=== PATIENT | female | born 1980 | race Caucasian/White ===

== ENCOUNTER 2018-01-25 10:52 | Emergency (ER) | payer BC ==
[2018-01-25] MEDS ORDERED: Aspirin 81 MG Tab.Chew PO ONE (11:10)
--- NOTE | 2018-01-25 11:17 | EDM.PDOC ---
ED HPI GENERAL MEDICAL PROBLEM - General Chief Complaint: Cardiovascular Problem Stated Complaint: BACK PAIN, HEART PALPITATIONS, ARM PAIN Time Seen by Provider: 01/25/18 11:04 Source of Information: Reports: Patient History Limitations: Reports: No Limitations - History of Present Illness INITIAL COMMENTS - FREE TEXT/NARRATIVE: This 37 yo female patient reports to the ED with lower back pain, chest pain and right arm pain that started at about 1045 today. The patient reports she was cleaning when the symptoms started. The patient reports that she had some abdominal pain this morning and took some Rolaids for that which improved her symptoms. 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 The patient does see cardiology with the last visit about 1 month ago. The patient reports there is a possibility of . The patient has had a miscarriage in the past. 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(s) (Rolaids) Back Pain Score (Numeric/FACES): 7 - Related Data Allergies Allergy/AdvReac Type Severity Reaction Status Date / Time oxycodone Allergy Intermediate Nausea Verified 01/25/18 10:59 Sulfa (Sulfonamide Allergy Shortness Verified 01/25/18 10:59 Antibiotics) of Breath venom-wasp [wasp venom] Allergy Airway Verified 01/25/18 10:59 Tightness Home Meds: Home Meds Enalapril [Vasotec] 10 mg PO DAILY 04/26/16 [History] L.acidoph,Paracasei, B.lactis [Probiotic] 1 cap ORAL.INH DAILY 04/26/16 [History ] Past Medical History HEENT History: Reports: None Cardiovascular History: Reports: Other (See Below) Other Cardiovascular History: heart defect as an , 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 this is 2nd Musculoskeletal History: Reports: None Neurological History: Reports: None Psychiatric History: Reports: None Endocrine/Metabolic History: Reports: None Hematologic History: Reports: None Immunologic History: Reports: None Oncologic (Cancer) History: Reports: None Dermatologic History: Reports: None - Infectious Disease History Infectious Disease History: Reports: Chicken Pox - Past Surgical History Head Surgeries/Procedures: Reports: None GI Surgical History: Reports: Cholecystectomy Social & Family History - Family History Family Medical History: Noncontributory - Tobacco Use Smoking Status *Q: Current Every Day Smoker Years of Tobacco use: 7 Packs/Tins Daily: 1 - Caffeine Use Caffeine Use: Reports: Soda - Recreational Drug Use Recreational Drug Use: No - Living Situation & Occupation Living situation: Reports: ED ROS GENERAL - Review of Systems Review Of Systems: ROS reveals no pertinent complaints other than HPI. ED EXAM, GENERAL - Physical Exam Exam: See Below Exam Limited By: No Limitations General Appearance: Alert, WD/WN, Moderate Distress Eye Exam: Bilateral Eye: EOMI, Normal Inspection, PERRL Ears: Normal External Exam, Normal Canal, Hearing Grossly Normal, Normal TMs Nose: Normal Inspection, Normal Mucosa, No Blood Throat/Mouth: Normal Inspection, Normal Lips, Normal Teeth, Normal Gums, Normal Oropharynx, Normal Voice, No Airway Compromise Head: Atraumatic, Normocephalic Neck: Normal Inspection, Supple, Non-Tender, Full Range of Motion Cardiovascular: Normal Peripheral Pulses, Regular Rate, Rhythm, No Edema, No Gallop, No JVD, No Murmur, No Rub GI/Abdominal: Normal Bowel Sounds, Soft, Non-Tender, No Organomegaly, No Distention, No Abnormal Bruit, No Mass (Female) Exam: Deferred Rectal (Female) Exam: Deferred Back Exam: Paraspinal Tenderness (lower back), Vertebral Tenderness (lower back ) Extremities: Normal Inspection, Normal Range of Motion, Non-Tender, Normal Capillary Refill, No Pedal Edema Neurological: Alert, Oriented, CN II-XII Intact, Normal Cognition, Normal Gait, Normal Reflexes, No Motor/Sensory Deficits Psychiatric: Normal Affect, Normal Mood Skin Exam: Warm, Dry, Intact, Normal Color, No Rash Lymphatic: No Adenopathy Course - Vital Signs Last Recorded V/S: Last Vital Signs Temp 36.9 C 01/25/18 14:19 Pulse 87 01/25/18 14:19 Resp 15 01/25/18 14:19 BP 114/60 01/25/18 14:19 Pulse Ox 94 L 01/25/18 14:19 - Orders/Labs/Meds Orders: Active Orders 24 hr Category Date Time Status EKG Documentation Completion [RC] URGENT Care 01/25/18 11:09 Active Chest wo Cont [CT] Urgent Exams 01/25/18 15:01 Ordered CULTURE BLOOD [BC] Stat Lab 01/25/18 14:43 Ordered CULTURE BLOOD [BC] Stat Lab 01/25/18 14:43 Ordered HCG QUALITATIVE,URINE [URCHEM] Stat Lab 01/25/18 11:30 Ordered LACTIC ACID [CHEM] Stat Lab 01/25/18 14:43 Ordered UA W/MICROSCOPIC [URIN] Stat Lab 01/25/18 11:30 Ordered Blood Culture x2 Reflex Set [OM.PC] Stat Oth 01/25/18 14:43 Ordered Labs: Laboratory Tests 01/25/18 01/25/18 01/25/18 Range/Units 11:20 11:20 11:20 WBC 21.6 H (5.0-10.0) 10^3/uL RBC 4.96 (4.2-5.4) 10^6/uL Hgb 15.4 D (12.0-16.0) g/dL Hct 45.3 (37.0-47.0) % MCV 91.3 (80-100) fL MCH 31.0 (27.0-34.0) pg MCHC 34.0 (33.0-35.0) g/dL Plt Count 192 (150-450) 10^3/uL Neut % (Auto) 86.2 H (42.2-75.2) % Lymph % (Auto) 9.5 L (20.5-50.1) % Sullivan % (Auto) 3.6 (2-8) % Eos % (Auto) 0.5 L (1.0-3.0) % Baso % (Auto) 0.2 (0.0-1.0) % Sodium 133 L (135-145) mmol/L Potassium 3.9 (3.6-5.0) mmol/L Chloride 104 (101-111) mmol/L Carbon Dioxide 19.0 L (21.0-31.0) mmol/L Anion Gap 13.9 BUN 10 (7-18) mg/dL Creatinine 0.7 (0.6-1.3) mg/dL Est Cr Clr Drug Dosing 87.03 mL/min Estimated GFR (MDRD) > 60 BUN/Creatinine Ratio 14.28 Glucose 103 (74-105) mg/dL Calcium 9.1 (8.4-10.2) mg/dl Total Bilirubin 1.0 (0.2-1.0) mg/dL AST 25 (10-42) IU/L ALT 22 (10-60) IU/L Alkaline Phosphatase 84 (42-121) IU/L Troponin I < 0.02 (0.00-0.02) ng/ml B-Natriuretic Peptide 24 (0-100) pg/ml Total Protein 7.6 (6.7-8.2) g/dl Albumin 4.0 (3.2-5.5) g/dl Globulin 3.6 Albumin/Globulin Ratio 1.11 Amylase 78 (28-100) U/L Lipase 28 (22-51) U/L Urine Color (YELLOW) Urine Appearance (CLEAR) Urine pH (5.0-9.0) Ur Specific [place] (1.005-1.030) Urine Protein (NEGATIVE) Urine Glucose (UA) (NEGATIVE) Urine Ketones (NEGATIVE) Urine Occult Blood (NEGATIVE) Urine Nitrite (NEGATIVE) Urine Bilirubin (NEGATIVE) Urine Urobilinogen (0.2-1.0) mg/dL Ur Leukocyte Esterase (NEGATIVE) Urine RBC /HPF Urine WBC (0-5/HPF) /HPF Ur Epithelial Cells /HPF Urine Bacteria (0-FEW/HPF) /HPF Urine HCG, Qual 01/25/18 01/25/18 Range/Units 11:30 11:30 WBC (5.0-10.0) 10^3/uL RBC (4.2-5.4) 10^6/uL Hgb (12.0-16.0) g/dL Hct (37.0-47.0) % MCV (80-100) fL MCH (27.0-34.0) pg MCHC (33.0-35.0) g/dL Plt Count (150-450) 10^3/uL Neut % (Auto) (42.2-75.2) % Lymph % (Auto) (20.5-50.1) % Sullivan % (Auto) (2-8) % Eos % (Auto) (1.0-3.0) % Baso % (Auto) (0.0-1.0) % Sodium (135-145) mmol/L Potassium (3.6-5.0) mmol/L Chloride (101-111) mmol/L Carbon Dioxide (21.0-31.0) mmol/L Anion Gap BUN (7-18) mg/dL Creatinine (0.6-1.3) mg/dL Est Cr Clr Drug Dosing mL/min Estimated GFR (MDRD) BUN/Creatinine Ratio Glucose (74-105) mg/dL Calcium (8.4-10.2) mg/dl Total Bilirubin (0.2-1.0) mg/dL AST (10-42) IU/L ALT (10-60) IU/L Alkaline Phosphatase (42-121) IU/L Troponin I (0.00-0.02) ng/ml B-Natriuretic Peptide (0-100) pg/ml Total Protein (6.7-8.2) g/dl Albumin (3.2-5.5) g/dl Globulin Albumin/Globulin Ratio Amylase (28-100) U/L Lipase (22-51) U/L Urine Color Yellow (YELLOW) Urine Appearance Clear (CLEAR) Urine pH 6.0 (5.0-9.0) Ur Specific [place] 1.015 (1.005-1.030) Urine Protein Negative (NEGATIVE) Urine Glucose (UA) Negative (NEGATIVE) Urine Ketones Negative (NEGATIVE) Urine Occult Blood Negative (NEGATIVE) Urine Nitrite Negative (NEGATIVE) Urine Bilirubin Negative (NEGATIVE) Urine Urobilinogen 0.2 (0.2-1.0) mg/dL Ur Leukocyte Esterase Negative (NEGATIVE) Urine RBC 0-5 /HPF Urine WBC 0-5 (0-5/HPF) /HPF Ur Epithelial Cells Few /HPF Urine Bacteria Few (0-FEW/HPF) /HPF Urine HCG, Qual Negative Meds: Medications Discontinued Medications Generic Name Dose Route Start Last Admin Trade Name Freq PRN Reason Stop Dose Admin Aspirin 324 mg 01/25/18 11:10 01/25/18 11:30 Aspirin PO 01/25/18 11:11 324 mg ONETIME ONE Administration Ceftriaxone Sodium 1 gm 01/25/18 15:01 Rocephin IVPUSH 01/25/18 15:02 ONETIME ONE Iopamidol 75 ml 01/25/18 12:11 01/25/18 12:32 Isovue-300 (61%) IVPUSH 01/25/18 12:12 75 ml ONETIME ONE Administration Lorazepam 0.5 mg 01/25/18 14:44 01/25/18 14:48 Ativan IVPUSH 01/25/18 14:45 0.5 mg ONETIME ONE Administration - Re-Assessments/Exams Free Text/Narrative Re-Assessment/Exam: 01/25/18 14:09 Chest x-ray and abdominal CT demonstrates an enlarged liver and chest congestion. A BNP was ordered based on that report. Departure - Departure Time of Disposition: 15:05 Disposition: DC/Tfer to [facility] 02 Reason for Transfer *Q: Other Condition: Fair Clinical Impression: Chest pain Qualifiers: Chest pain type: unspecified Qualified Code(s): R07.9 - Chest pain, unspecified Leukocytosis Qualifiers: Leukocytosis type: bandemia Qualified Code(s): D72.825 - Bandemia Forms: Interfacility Transfer EMTALA Care Plan Goals: Discussed the examination, history, lab, x-ray and CT results with Dr. Chau ([facility]). Dr. Chau accepted the patient for continued evaluation and management. The patient will be transported by [facility]. - My Orders Last 24 Hours: My Active Orders 01/25/18 11:09 EKG Documentation Completion [RC] URGENT 01/25/18 11:30 HCG QUALITATIVE,URINE [URCHEM] Stat UA W/MICROSCOPIC [URIN] Stat 01/25/18 14:43 CULTURE BLOOD [BC] Stat CULTURE BLOOD [BC] Stat LACTIC ACID [CHEM] Stat Blood Culture x2 Reflex Set [OM.PC] Stat 01/25/18 15:01 Chest wo Cont [CT] Urgent - Assessment/Plan Last 24 Hours: My Active Orders 01/25/18 11:09 EKG Documentation Completion [RC] URGENT 01/25/18 11:30 HCG QUALITATIVE,URINE [URCHEM] Stat UA W/MICROSCOPIC [URIN] Stat 01/25/18 14:43 CULTURE BLOOD [BC] Stat CULTURE BLOOD [BC] Stat LACTIC ACID [CHEM] Stat Blood Culture x2 Reflex Set [OM.PC] Stat 01/25/18 15:01 Chest wo Cont [CT] Urgent
[2018-01-25 11:54] LABS: ANION GAP 13.9; CHLORIDE,CL 104 mmol/L (101-111); SODIUM,NA 133 mmol/L (135-145)
[2018-01-25] MEDS ORDERED: Iopamidol 612 MG/ML 75 ML Bottle IVPUSH ONE (12:11)
--- NOTE | 2018-01-25 12:53 | CR ---
Clinical history: 37-year-old female smoker with chest pain. Interpretation: Relative increased heart size and generalized increased (florid) venous congestion an d cephalization of flow when compared to 10 April 2008 exam. Trace of fluid in the fissures but no alveolar edema or dependent pleural effusion. Cardiac murmur? EKG? Enzymes? Myocardial infarction? No lung mass, hilar lymphadenopathy or focal lobar pneumonia. No atelectasis/collapse.. No pneumothorax. CONCLUSION: Mild cardiomegaly and generalized venous congestion.
--- NOTE | 2018-01-25 13:44 | CT ---
CLINICAL HISTORY: 37-year-old 139 pound female smoker with heart disease, chest/abdominal pain, and W BC 21,000. CHF. SCAN TECHNIQUE: Volume acquisition of data from the abdomen and pelvis obtained without oral contrast but during the intravenous administration 75 cc nonionic Isovue contrast while the patient was lying supine on the Siemens multislice scanner [place], [place]. All data a rchived in the PACS system for storage, reformatting axial/sagittal/coronal planes and study. INTERPRETATION: 1. Normal appendix RLQ. 2. Cholecystectomy. Large homogeneously dense liver without abnormal duct dilatation. Normal spleen a nd pancreas. Adrenal glands unremarkable. No abdominal or pelvic mass lesion. No mesenteric or retrop eritoneal lymphadenopathy. 3. Normal reniform size, axis and configuration. No cortical mass lesion, nephrolithiasis or signs ob structive uropathy. 4. Large heart. Venous congestion. No pericardial effusion or dependent pleural effusion. 5. No sign of mechanical large or small bowel obstruction. No ascites or free intraperitoneal air. 6. Midline uterus unremarkable. Normal caliber aortoiliac vessels. Exaggerated lumbar lordosis. CONCLUSION: Cardiomegaly and venous congestion. Hepatomegaly. No sign of appendicitis, pyelonephritis or abnormal intraperitoneal inflammation. Cholecystectomy.
[2018-01-25] MEDS ORDERED: LORazepam 2 MG/ML Syringe IVPUSH ONE (14:44)
[2018-01-25] MEDS ORDERED: cefTRIAXone 1 GM Vial IVPUSH ONE (15:01)
[2018-01-25 16:16] VITALS: BP 116/53
--- NOTE | 2018-01-26 08:02 | CT ---
CLINICAL HISTORY: 37-year-old female smoker with "transposition of the great vessels", chest pain, ne w signs of CHF. WBC 21,600. Hepatomegaly but no signs of acute intraperitoneal inflammation. No lobar pneumonia. SCAN TECHNIQUE: Volume acquisition of data from an emergency unenhanced CT scan of the chest (bony th orax, lungs and mediastinum) obtained while the patient was lying supine on the Siemens multislice CT scanner [place], [place]. All data archived in the PACS system for st orage, reformatting axial/sagittal/coronal planes and study (lung/mediastinal windows). INTERPRETATION: 1. Large heart but no pericardial effusion this patient with left-sided aortic arch. Endocarditis? 2. Generalized pulmonary venous congestion/cephalization but no alveolar edema or dependent pleural f luid accumulation. 3. Peribronchial "cuffing", scattered cystic parenchymal lesions, prominent proximal pulmonary artery segments typical COPD. 4. No focal lobar pneumonia. No peripheral pleural-based wedge shaped infarcts or abnormal areas of f ocal lobar oligemia. 5. No lung mass lesion or significant hilar/mediastinal lymphadenopathy appreciated on this unenhance d exam. 6. Mild kyphosis and spondylosis dorsal spine. No pathologic skeletal lesion, thoracic fracture or di slocation. 7. Enlarged liver (cholecystectomy). Normal spleen. CONCLUSION: Mild cardiomegaly and pulmonary venous congestion. COPD. No lobar pneumonia. Hepatomegaly .
== END 2018-01-25 16:42 ==
LOC: DL.ED 10:52
DX: R07.9 Chest pain, unspecified (principal); D72.825 Bandemia; F17.210 Nicotine dependence, cigarettes, uncomplicated; Z88.2 Allergy status to sulfonamides; Z88.8 Allergy status to other drugs, medicaments and biological substances; Z91.030 Bee allergy status
CPT/HCPCS: 36415; 71046; 71250; 74177; 80053; 81001; 81025; 82150; 83605; 83690; 83880; 84484; 85025; 87040; 93005; 96374; 96375; 99285; A9270; J0696; J2060; Q9967

== ENCOUNTER 2022-09-27 15:01 | Emergency (ER) | payer BC ==
[2022-09-27 14:59] VITALS: BP 120/58; PULSE 74
[2022-09-27] MEDS ORDERED: Sodium Chloride 0.9% 1,000 ML IV ONE (15:37)
[2022-09-27 15:44] LABS: ANION GAP 12.7 mEq/L (7-13); CHLORIDE,CL 103 mmol/L (98-107); SODIUM,NA 138 mmol/L (136-145)
[2022-09-27 15:47] LABS: ESTIMATED GFR 94 mL/min (>=60)
[2022-09-27 16:18] LABS: AMPHETAMINES,URINE NEGATIVE (NEGATIVE); BARBITURATES,URINE NEGATIVE (NEGATIVE); BENZODIAZEPINE,URINE NEGATIVE (NEGATIVE); MDMA (ECSTASY), URINE NEGATIVE (NEGATIVE); METHADONE,URINE NEGATIVE (NEGATIVE); METHAMPHETAMINES,URINE NEGATIVE (NEGATIVE); OPIATES,URINE NEGATIVE (NEGATIVE); OXYCODONE,URINE NEGATIVE (NEGATIVE); PHENCYCLIDINE,URINE NEGATIVE (NEGATIVE); TCA,URINE NEGATIVE (NEGATIVE)
== END 2022-09-27 16:51 | disposition home or self-care (01) ==
LOC: DL.ED 15:01
DX: R07.9 Chest pain, unspecified (principal); I10 Essential (primary) hypertension; F17.210 Nicotine dependence, cigarettes, uncomplicated; Z88.5 Allergy status to narcotic agent; Z88.2 Allergy status to sulfonamides; Z91.038 Other insect allergy status
CPT/HCPCS: 36415; 71045; 80053; 80305; 81001; 82150; 83690; 83735; 83880; 84443; 84484; 84703; 85025; 93005; 96360; 99285; J7030